=== PATIENT | male | born 1950 | race Caucasian/White ===

== ENCOUNTER 2021-12-18 07:00 | Day surgery (SDC) | payer MEDICARE, OTHER ==
[~2021-12-18 07:00] MED LIST: Acetaminophen 325 MG Tab PO SCH; Lactated Ringers 1,000 ML IV SCH; Lidocaine 1%/Sod Bicarbonate in NS 8.4% 1 ML Syringe IDERM PRN; Pregabalin 25 MG Cap PO SCH; Sodium Chloride 0.9% 10 ML Syringe FLUSH PRN; Sodium Chloride 0.9% 10 ML Syringe FLUSH SCH; oxyCODONE ER 10 MG TAB.ER PO SCH
[2021-12-18] MEDS ORDERED: Vancomycin 1 GM SDV ONE (07:10)
[2021-12-18] MEDS ORDERED: fentaNYL 250 MCG/5 ML SDV ONE (08:07)
[2021-12-18] MEDS ORDERED: Midazolam 1 MG/ML 2 ML SDV ONE (08:07)
[2021-12-18] MEDS ORDERED: Ropivacaine 0.5% 5 MG/ML 30 ML SDV ONE (08:10)
[2021-12-18] MEDS ORDERED: EPINEPHrine 1 MG/ML SDV ONE (08:10)
[2021-12-18] MEDS ORDERED: Cyclobenzaprine 10 MG Tab PO PRN (09:00)
[2021-12-18] MEDS ORDERED: oxyCODONE 5 MG Tab PO PRN (09:00)
[2021-12-18] MEDS ORDERED: Lidocaine 1% 4 ML ONE (09:37)
[2021-12-18] MEDS ORDERED: Propofol 200 MG/20 ML SDV ONE (09:37)
[2021-12-18] MEDS ORDERED: Rocuronium 50 MG/5 ML Vial ONE ×2 (09:38)
[2021-12-18] MEDS ORDERED: Ondansetron 4 MG/2 ML SDV ONE (09:38)
[2021-12-18] MEDS ORDERED: Dexamethasone 4 MG/ML 5 ML MDV ONE (09:38)
[2021-12-18] MEDS ORDERED: ceFAZolin 2 GM Vial ONE (10:59)
[2021-12-18] MEDS ORDERED: ePHEDrine 50 MG/ML SDV ONE (11:08)
[2021-12-18] MEDS ORDERED: Lactated Ringers 1,000 ML ONE (11:09)
[2021-12-18] MEDS ORDERED: fentaNYL 100 MCG/2 ML SDV IVPUSH PRN (12:18)
[2021-12-18] MEDS ORDERED: Ondansetron 4 MG/2 ML SDV IVPUSH PRN (12:18)
[2021-12-18] MEDS ORDERED: HYDROmorphone 0.5 MG/0.5 ML Syringe IVPUSH PRN (12:18)
== END 2021-12-18 14:26 | disposition home or self-care (01) ==
LOC: JD.SDS 07:00
PROVIDERS: ATTEND Orthopaedic Surgery
DX: M19.011 Primary osteoarthritis, right shoulder (principal); M75.101 Unspecified rotator cuff tear or rupture of right shoulder, not specified as traumatic; J30.9 Allergic rhinitis, unspecified; E11.22 Type 2 diabetes mellitus with diabetic chronic kidney disease; N18.1 Chronic kidney disease, stage 1; I12.9 Hypertensive chronic kidney disease with stage 1 through stage 4 chronic kidney disease, or unspecified chronic kidney disease; G89.29 Other chronic pain; E78.00 Pure hypercholesterolemia, unspecified; Z79.899 Other long term (current) drug therapy; Z79.84 Long term (current) use of oral hypoglycemic drugs; Z86.010 Personal history of colon polyps; Z98.890 Other specified postprocedural states; Z87.891 Personal history of nicotine dependence
CPT/HCPCS: 23472; 73020; 76000; 97110; 97161; A9270; C1713; C1769; C1776; J0171; J0690; J1100; J2250; J2405; J2704; J2795; J3010; J3370; J7120; 01638; 64415; 76942; 99100